=== PATIENT | female | born 1990 | race American Indian/Alaskan Native ===

== ENCOUNTER 2018-08-19 21:13 | Emergency (ER) | payer SELFPAY ==
[2018-08-19 22:56] LABS: Bacteria,Urine 1+ /HPF (Negative); Bilirubin,Urine NEG (Negative); Blood,Urine NEG (Negative); Color,Urine Yellow (Yellow); Mucus,Urine FEW /HPF
[2018-08-19 22:58] LABS: Hematocrit 41.2 % (30.3-42.9); Hemoglobin 13.1 gm/dl (10.1-14.3); Mean Corpuscular HGB Conc 32 % (30-34); Mean Corpuscular Hemoglobin 27 pg (28-32); Mean Corpuscular Volume 86 fl (79-97); Platelet Count 271 K/mm3 (140-440); Red Cell Distribution Width 13.7 % (13.2-15.2)
[2018-08-19 23:06] LABS: HCG Qualitative,Urine Positive (Negative)
[2018-08-19 23:19] LABS: BUN/Creatinine Ratio 18; Blood Urea Nitrogen 9 mg/dL (7-17); Calcium 9.2 mg/dL (8.4-10.2); Hemolysis Index 8; Lipase 20 units/L (13-60)
[2018-08-20] MEDS ORDERED: NACL 0.9% 1000 ML 1,000 ML IV ONE (00:23)
[2018-08-20] MEDS ORDERED: REGLAN IV ONE (00:23)
--- NOTE | 2018-08-20 01:43 | Emergency Department Report ---
ED HPI - General Chief complaint: Abdominal Pain Stated complaint: ABD PAIN/EMESIS Time Seen by Provider: 08/20/18 00:24 Source: patient Mode of arrival: Ambulatory Limitations: No Limitations - History of Present Illness Initial comments: This is a 27-year-old female nontoxic, well nourished in appearance, no acute signs of distress presents to the ED with c/o of nausea and vomiting and pelvic pain 1 week. Patient describes vomiting as food content and yellow gastric acid. Patient describes pelvic pain as cramping and aching with level of 3/10 diffuse. Patient denies any upper abdominal pain or radiation of pain. Patient also stated has bilateral breast tenderness and soreness. Patietn denies any vaginal bleeding or vaginal discharge. Patient denies chest pain, short of breath, fever, chills, headache, stiff neck, numbness or tingling. Patient denies any diarrhea or constipation. Patient denies any recent travels. Patient denies any allergies or PMH. LMP 07/10/2018. Denies knowing . MD Complaint: other (pelvic pain) -: week(s) Location: pelvis Radiation: none Severity: mild Severity scale (0 -10): 3 Quality: cramping Consistency: constant Improves with: none Worsens with: none Associated symptoms: nausea/vomiting, other (pelvic pain). denies: vaginal bleeding, vaginal discharge, abdominal pain, dysuria, headache, vision changes, malaise, dysparuenia, rash, seizure, shortness of breath, syncope, weakness Vaginal bleeding: none :: Yes Pre-madison care: none - Related Data Previous Rx's Medication Instructions Recorded Last Taken Type Metoclopramide [Reglan] 10 mg PO TID PRN #30 tab 08/20/18 Unknown Rx 21/Iron Fu/Folic Acid 1 each PO DAILY #30 tablet 08/20/18 Unknown Rx [ Complete Caplet] Allergies Allergy/AdvReac Type Severity Reaction Status Date / Time No Known Allergies Allergy Verified 08/19/18 21:28 ED Review of Systems ROS: Stated complaint: ABD PAIN/EMESIS Other details as noted in HPI Constitutional: denies: chills, fever Eyes: denies: eye pain, eye discharge, vision change ENT: denies: ear pain, throat pain Respiratory: denies: cough, shortness of breath, wheezing Cardiovascular: denies: chest pain, palpitations Endocrine: no symptoms reported Gastrointestinal: nausea, vomiting, other (pelvic pain). denies: abdominal pain , diarrhea Genitourinary: denies: urgency, dysuria, discharge Musculoskeletal: denies: back pain, joint swelling, arthralgia Skin: denies: rash, lesions Neurological: denies: headache, weakness, paresthesias Psychiatric: denies: anxiety, depression Hematological/Lymphatic: denies: easy bleeding, easy bruising ED Past Medical Hx - Past Medical History Previous Medical History?: No - Surgical History Past Surgical History?: No - Social History Smoking Status: Former Smoker Substance Use Type: None - Medications Home Medications: Home Medications Medication Instructions Recorded Confirmed Last Taken Type Metoclopramide [Reglan] 10 mg PO TID PRN #30 tab 08/20/18 Unknown Rx 21/Iron Fu/Folic Acid 1 each PO DAILY #30 tablet 08/20/18 Unknown Rx [ Complete Caplet] ED Physical Exam - General Limitations: No Limitations General appearance: alert, in no apparent distress - Head Head exam: Present: atraumatic, normocephalic - Eye Eye exam: Present: normal appearance Pupils: Present: normal accommodation - ENT ENT exam: Present: normal exam, mucous membranes moist - Neck Neck exam: Present: normal inspection, full ROM. Absent: tenderness, meningismus - Respiratory Respiratory exam: Present: normal lung sounds bilaterally. Absent: respiratory distress, wheezes, rales, rhonchi, stridor, chest wall tenderness, accessory muscle use, decreased breath sounds, prolonged expiratory - Cardiovascular Cardiovascular Exam: Present: regular rate, normal rhythm, normal heart sounds. Absent: bradycardia, tachycardia, irregular rhythm, systolic murmur, diastolic murmur, rubs, gallop - GI/Abdominal GI/Abdominal exam: Present: soft, normal bowel sounds. Absent: distended, tenderness, guarding, rebound, rigid, diminished bowel sounds - Expanded GI/Abdominal Exam Expanded GI/Abdominal exam: Absent: psoas sign, Edmonds's sign, Rovsing's sign, tenderness at Mcburney's Point, ascites - Rectal Rectal exam: Present: deferred - Extremities Exam Extremities exam: Present: normal inspection, full ROM, normal capillary refill. Absent: tenderness - Back Exam Back exam: Present: normal inspection, full ROM. Absent: tenderness, CVA tenderness (R), CVA tenderness (L), muscle spasm, paraspinal tenderness, vertebral tenderness, rash noted - Neurological Exam Neurological exam: Present: alert, oriented X3, normal gait - Psychiatric Psychiatric exam: Present: normal affect, normal mood - Skin Skin exam: Present: warm, dry, intact, normal color. Absent: rash ED Course Vital Signs 08/19/18 21:24 Temperature 98.3 F Pulse Rate 65 Respiratory 18 Rate Blood Pressure 143/91 O2 Sat by Pulse 100 Oximetry - Reevaluation(s) Reevaluation #1: 08/20/18 01:44 Patient is speaking in full sentences with no signs of distress noted. ED Medical Decision Making - Lab Data Result diagrams: 08/19/18 22:37 08/19/18 22:37 - Medical Decision Making This is a 27-year-old female presents with positive with pelvic pain and hyperemesis gravidarum. Patient is stable and was examined by me. Normal abdominal exam. US OB obtained and dictated by the radiologist. Ua obtained. Quantative serum test obtained. Patient notified of the US report with no questions noted by the patient. Patient was instructed f/u with [facility] in 2 days to follow up with a [facility] or to emergency room for a reevaluation of serum quantative test with possible ultrasound. Patient was given strict precautions and education on ectopic . Patient received 1L normal saline with Reglan which stated that nausea and vomiting resolved. A by mouth challenge has been obtained patient tolerated well with no nausea or vomiting. Labs within normal limits. At time of discharge, the patient does not seem toxic or ill in appearance. No acute signs of distress noted. Patient agrees to discharge treatment plan of care. No further questions noted by the patient. Critical care attestation.: If time is entered above; I have spent that time in minutes in the direct care of this critically ill patient, excluding procedure time. ED Disposition Clinical Impression: Hyperemesis gravidarum Pelvic pain affecting Qualifiers: Trimester: first trimester Qualified Code(s): O26.891 - Other specified related conditions, first trimester Qualifiers: Weeks of gestation: unspecified Qualified Code(s): Z34.90 - Encounter for supervision of normal , unspecified, unspecified trimester Disposition: DC-01 TO HOME OR SELFCARE Is pt being admited?: No Does the pt Need Aspirin: No Condition: Stable Instructions: (ED), Hyperemesis Gravidarum (ED), Abdominal Pain (ED) Additional Instructions: Follow-up with a OBGYN in 2 days or if symptoms worsen and continue return to emergency room as soon as possible. Prescriptions: Metoclopramide [Reglan] 10 mg PO TID PRN #30 tab PRN Reason: Nausea 21/Iron Fu/Folic Acid [ Complete Caplet] 1 each PO DAILY #30 tablet Referrals: PRIMARY CAREMD [Primary Care Provider] - 3-5 Days DANIELLA STEINBERG MD [Staff Physician] - 3-5 Days [facility] [Provider Group] - 3-5 Days Forms: Work/School Release Form(ED)
--- NOTE | 2018-08-20 02:07 | Ultrasound Report ---
FINAL REPORT PROCEDURE: US OB TRANSVAGINAL TECHNIQUE: Real-time transvaginal sonography of the uterus, placenta, amniotic fluid, adnexa, and fetus was performed with image documentation. Measurements were obtained to determine age/size. M-mode Doppler was used to document heartbeat. CPT 26192 HISTORY: pelvic pain COMPARISON: No prior studies are available for comparison. FINDINGS: No intrauterine is identified. The uterus measures 7.5 x 4 x 5.1 centimeters. There is no myometrial mass. The endometrium measures 11 millimeters. There is no fluid. The The right ovary measures 2.7 x 1.4 x 1.7 centimeters. There is a 14 millimeter complex cyst which could be hemorrhagic. The left ovary measures 2 x 1.1 x 1 centimeters. There is no free pelvic fluid. IMPRESSION: There is no evidence of intrauterine or ectopic . Correlation with beta HCG measurements may be helpful.
--- NOTE | 2018-08-20 02:07 | Ultrasound Report ---
FINAL REPORT PROCEDURE: US OB LESS THAN 14 WEEKS TECHNIQUE: Real-time transabdominal sonography of the uterus, placenta, amniotic fluid, adnexa, and fetus was performed with image documentation. Measurements were obtained to determine age/size. M-mode Doppler was used to document heartbeat. HISTORY: pelvic pain COMPARISON: No prior studies are available for comparison. FINDINGS: No intrauterine is identified. The uterus measures 7.5 x 4 x 5.1 centimeters. There is no myometrial mass. The endometrium measures 11 millimeters. There is no fluid. The The right ovary measures 2.7 x 1.4 x 1.7 centimeters. There is a 14 millimeter complex cyst which could be hemorrhagic. The left ovary measures 2 x 1.1 x 1 centimeters. There is no free pelvic fluid. IMPRESSION: There is no evidence of intrauterine or ectopic . Correlation with beta HCG measurements may be helpful.
[2018-08-20 03:14] VITALS: BP 149/79
== END 2018-08-20 02:57 | disposition home or self-care (01) ==
LOC: ED 21:13
DX: O21.0 Mild hyperemesis gravidarum (principal); O26.891 Other specified pregnancy related conditions, first trimester; R10.2 Pelvic and perineal pain; Z3A.01 Less than 8 weeks gestation of pregnancy; Z87.891 Personal history of nicotine dependence
CPT/HCPCS: 36415; 76801; 76817; 80048; 81001; 81025; 82150; 83690; 84702; 85027; 96361; 96374; 99284; J2765; J7030

== ENCOUNTER 2018-08-23 00:34 | Emergency (ER) | payer SELFPAY ==
[2018-08-23] MEDS ORDERED: TYLENOL PO ONE (00:46)
[2018-08-23] MEDS ORDERED: TYLENOL ONE (00:51)
[2018-08-23 01:20] LABS: Basophils # (Auto) 0.1 K/mm3 (0.0-0.1); Basophils % (Auto) 0.6 % (0.0-1.8); Eosinophils # (Auto) 0.1 K/mm3 (0.0-0.4); Eosinophils % (Auto) 0.5 % (0.0-4.3); Hematocrit 40.9 % (30.3-42.9); Hemoglobin 13.4 gm/dl (10.1-14.3); Lymphocytes # (Auto) 4.4 K/mm3 (1.2-5.4); Lymphocytes % (Auto) 38.7 % (13.4-35.0); Mean Corpuscular HGB Conc 33 % (30-34); Mean Corpuscular Hemoglobin 28 pg (28-32); Mean Corpuscular Volume 85 fl (79-97); Monocytes # (Auto) 0.6 K/mm3 (0.0-0.8); Monocytes % (Auto) 5.7 % (0.0-7.3); Platelet Count 243 K/mm3 (140-440); Red Blood Count 4.83 M/mm3 (3.65-5.03); Red Cell Distribution Width 13.5 % (13.2-15.2)
[2018-08-23 01:43] LABS: Alanine Aminotransferase 9 units/L (7-56); Albumin 4.2 g/dL (3.9-5); BUN/Creatinine Ratio 15; Blood Urea Nitrogen 9 mg/dL (7-17); Hemolysis Index 67
--- NOTE | 2018-08-23 02:00 | Emergency Department Report ---
ED Female HPI - General Chief complaint: Abdominal Pain Stated complaint: BLEEDING/ 6WKS Time Seen by Provider: 08/23/18 01:12 Source: patient Mode of arrival: Ambulatory Limitations: No Limitations - History of Present Illness Initial comments: 27 year old female with a past medical history of obesity presents to the hospital complaints of vaginal bleeding and suprapubic cramps with her first . Patient presented to the ER August 19 with complaints of suprapubic abdominal pain and was diagnosed with . Quant was 981 without any IUP identified on ultrasound. Patient has her first [facility] appointment scheduled for Sunday the a.m. at [facility]. At 4:30 PM on the patient developed vaginal bleeding. She has filled up one panty liner and otherwise is having spotting and persistent moderate moderate m suprapubic cramps. BP noted to be elevated on triage values and patient denies history of hypertension but does not go to the doctor or check her BP. - Related Data Previous Rx's Medication Instructions Recorded Last Taken Type Metoclopramide [Reglan] 10 mg PO TID PRN #30 tab 08/20/18 Unknown Rx 21/Iron Fu/Folic Acid 1 each PO DAILY #30 tablet 08/20/18 Unknown Rx [ Complete Caplet] Allergies Allergy/AdvReac Type Severity Reaction Status Date / Time No Known Allergies Allergy Verified 08/19/18 21:28 ED Review of Systems ROS: Stated complaint: BLEEDING/ 6WKS Other details as noted in HPI Comment: All other systems reviewed and negative ED Past Medical Hx - Past Medical History Previous Medical History?: No - Surgical History Past Surgical History?: No - Social History Smoking Status: Former Smoker Substance Use Type: None - Medications Home Medications: Home Medications Medication Instructions Recorded Confirmed Last Taken Type Metoclopramide [Reglan] 10 mg PO TID PRN #30 tab 08/20/18 Unknown Rx 21/Iron Fu/Folic Acid 1 each PO DAILY #30 tablet 08/20/18 Unknown Rx [ Complete Caplet] ED Physical Exam - General Limitations: No Limitations - Other Other exam information: General: No limitations, patient is alert in no acute distress Head exam: Atraumatic, normocephalic Eyes exam: Normal appearance ENT: Moist mucous membrane, normal oropharynx Neck exam: Normal inspection, full range of motion, no meningismus nontender Respiratory exam: Clear to auscultation bilateral, no wheezes, rales, crackles Cardiovascular: Normal rate and rhythm, normal heart sounds Abdomen: Soft, nondistended, suprapubic tenderness, with normal bowel sounds, no rebound, or guarding Extremity: Full range of motion normal inspection no deformity Back: Normal Inspection, full range of motion, no tenderness Neurologic: Alert, oriented x3, cranial nerves intact, no motor or sensory deficit Psychiatric: normal affect, normal mood Skin: Warm, dry, intact ED Course Vital Signs 08/23/18 08/23/18 08/23/18 00:40 01:00 02:01 Temperature 97.5 F L Pulse Rate 71 Respiratory 20 20 Rate Blood Pressure 161/92 Blood Pressure 141/88 [Left] O2 Sat by Pulse 98 Oximetry - Consultations Consultation #1: 08/23/18 02:45 case d/w DR [facility], f/y with [facility] today as scheduled ED Medical Decision Making - Lab Data Result diagrams: 08/23/18 00:50 08/23/18 00:50 Lab Results 08/23/18 08/23/18 08/23/18 Range/Units 00:50 00:50 00:50 WBC 11.3 H (4.5-11.0) K/mm3 RBC 4.83 (3.65-5.03) M/mm3 Hgb 13.4 (10.1-14.3) gm/dl Hct 40.9 (30.3-42.9) % MCV 85 (79-97) fl MCH 28 (28-32) pg MCHC 33 (30-34) % RDW 13.5 (13.2-15.2) % Plt Count 243 (140-440) K/mm3 Lymph % (Auto) 38.7 H (13.4-35.0) % Sherman % (Auto) 5.7 (0.0-7.3) % Eos % (Auto) 0.5 (0.0-4.3) % Baso % (Auto) 0.6 (0.0-1.8) % Lymph # 4.4 (1.2-5.4) K/mm3 Sherman # 0.6 (0.0-0.8) K/mm3 Eos # 0.1 (0.0-0.4) K/mm3 Baso # 0.1 (0.0-0.1) K/mm3 Seg Neutrophils % 54.5 (40.0-70.0) % Seg Neutrophils # 6.1 (1.8-7.7) K/mm3 Sodium 138 (137-145) mmol/L Potassium 4.3 (3.6-5.0) mmol/L Chloride 97.2 L (98-107) mmol/L Carbon Dioxide 26 (22-30) mmol/L Anion Gap 19 mmol/L BUN 9 (7-17) mg/dL Creatinine 0.6 L (0.7-1.2) mg/dL Estimated GFR > 60 ml/min BUN/Creatinine Ratio 15 % Glucose 93 (65-100) mg/dL Calcium 9.0 (8.4-10.2) mg/dL Total Bilirubin < 0.20 (0.1-1.2) mg/dL AST 12 (5-40) units/L ALT 9 (7-56) units/L Alkaline Phosphatase 77 (35-129) units/L Total Protein 6.7 (6.3-8.2) g/dL Albumin 4.2 (3.9-5) g/dL Albumin/Globulin Ratio 1.7 % HCG, Quant 1070 H (0-4) mIU/mL Blood Type Antibody Screen 08/23/18 Range/Units 00:50 WBC (4.5-11.0) K/mm3 RBC (3.65-5.03) M/mm3 Hgb (10.1-14.3) gm/dl Hct (30.3-42.9) % MCV (79-97) fl MCH (28-32) pg MCHC (30-34) % RDW (13.2-15.2) % Plt Count (140-440) K/mm3 Lymph % (Auto) (13.4-35.0) % Sherman % (Auto) (0.0-7.3) % Eos % (Auto) (0.0-4.3) % Baso % (Auto) (0.0-1.8) % Lymph # (1.2-5.4) K/mm3 Sherman # (0.0-0.8) K/mm3 Eos # (0.0-0.4) K/mm3 Baso # (0.0-0.1) K/mm3 Seg Neutrophils % (40.0-70.0) % Seg Neutrophils # (1.8-7.7) K/mm3 Sodium (137-145) mmol/L Potassium (3.6-5.0) mmol/L Chloride (98-107) mmol/L Carbon Dioxide (22-30) mmol/L Anion Gap mmol/L BUN (7-17) mg/dL Creatinine (0.7-1.2) mg/dL Estimated GFR ml/min BUN/Creatinine Ratio % Glucose (65-100) mg/dL Calcium (8.4-10.2) mg/dL Total Bilirubin (0.1-1.2) mg/dL AST (5-40) units/L ALT (7-56) units/L Alkaline Phosphatase (35-129) units/L Total Protein (6.3-8.2) g/dL Albumin (3.9-5) g/dL Albumin/Globulin Ratio % HCG, Quant (0-4) mIU/mL Blood Type B POSITIVE Antibody Screen Negative - Medical Decision Making Patient has a normal H&H without signs of hypotension or tachycardia. She is using panty liners and therefore bleeding is mild to moderate. She had ultrasound several days ago showing no IUP and with clot less than 1500 ultrasound will likely show anything at this time. Quant is increasing but not at a significant rate. Case d/w [facility]. She will be provided a copy of her labs and ultrasound during ED visits this week and is informed to follow-up with [facility] today as scheduled. Patient does not require RhoGAM based on blood type. BP elevated but improved compared to initial triage value. Follow-up will be encouraged - Differential Diagnosis miscarriage, ectopic, threatened AB Critical Care Time: No Critical care attestation.: If time is entered above; I have spent that time in minutes in the direct care of this critically ill patient, excluding procedure time. ED Disposition Clinical Impression: Vaginal bleeding affecting early , Elevated blood pressure reading Disposition: TO HOME OR SELFCARE Is pt being admited?: No Does the pt Need Aspirin: No Condition: Stable Instructions: Ectopic (ED), Threatened Miscarriage (ED), How to Take a Blood Pressure (ED) Additional Instructions: Take the medication as prescribed. Follow up with your [facility] doctor as scheduled this morning. Also follow up with a primary care doctor for monitoring of your blood pressure. Return if symptoms worsen as indicated by your discharge instructions. Please note until we can see a on ultrasound we cannot rule out ectopic and therefore follow-up is very important. Take Tylenol as needed for pain. Take a copy of your recent workup provided to your doctors for follow-up. Referrals: shannon duran md [Other] - 08/23/18 (Go to your appointment today as scheduled.) [facility] [Provider Group] - 3-5 Days Time of Disposition: 03:09
[2018-08-23 02:02] VITALS: BP 141/88
== END 2018-08-23 03:35 | disposition home or self-care (01) ==
LOC: ED 00:34
DX: O26.891 Other specified pregnancy related conditions, first trimester (principal); O20.8 Other hemorrhage in early pregnancy; R03.0 Elevated blood-pressure reading, without diagnosis of hypertension; Z87.891 Personal history of nicotine dependence
CPT/HCPCS: 36415; 80053; 84702; 85025; 86850; 86900; 86901; 99283

== ENCOUNTER 2020-04-04 15:59 | Emergency (ER) | payer OTHER ==
[2020-04-04 17:19] LABS: Bacteria,Urine 3+ /HPF (Negative); RBC,Urine > 182.0 /HPF (0.0-6.0)
[2020-04-04 17:20] LABS: WBC,Urine > 182.0 /HPF (0.0-6.0)
[2020-04-04 17:38] LABS: Amorphous Crystals,Urine 3+
[2020-04-04 17:48] LABS: Color,Urine Red (Yellow)
[2020-04-04 17:49] LABS: Bilirubin,Urine Negative (Negative); Blood,Urine Moderate (Negative)
[2020-04-04 18:07] LABS: Basophils % (Auto) 0.1 % (0.0-1.8); Eosinophils % (Auto) 0.5 % (0.0-4.3); Hematocrit 44.6 % (30.3-42.9); Lymphocytes # (Auto) 2.3 K/mm3 (1.2-5.4); Lymphocytes % (Auto) 25.1 % (13.4-35.0); Mean Corpuscular HGB Conc 31 % (30-34); Mean Corpuscular Volume 86 fl (79-97); Monocytes # (Auto) 0.5 K/mm3 (0.0-0.8); Platelet Count 293 K/mm3 (140-440)
[2020-04-04 18:26] LABS: Alanine Aminotransferase 12 units/L (7-56); Albumin 3.9 g/dL (3.9-5); BUN/Creatinine Ratio 16; Blood Urea Nitrogen 8 mg/dL (7-17); Calcium 9.1 mg/dL (8.4-10.2); Hemolysis Index 77
[2020-04-04 20:45] VITALS: BP 145/90
== END 2020-04-04 20:44 | disposition home or self-care (01) ==
LOC: ED 15:59
DX: O20.0 Threatened abortion (principal); O26.891 Other specified pregnancy related conditions, first trimester; R10.9 Unspecified abdominal pain; Z3A.01 Less than 8 weeks gestation of pregnancy; Z79.899 Other long term (current) drug therapy
CPT/HCPCS: 36415; 76801; 76817; 80053; 81001; 84702; 85025